=== PATIENT | female | born 1965 | race Caucasian/White ===

== ENCOUNTER 2021-10-27 17:36 | Emergency (ER) | payer BC, SELFPAY ==
[2021-10-27 19:30] VITALS: BP 127/82; PULSE 86; RESP 21; TEMP 36.6; O2SAT 97; BMI 29.0
--- NOTE | 2021-10-27 19:51 | HMH.EDUTC ---
[facility] Disposition Clinical Impression: Sinusitis Qualifiers: Sinusitis location: unspecified location Chronicity: unspecified Qualified Code(s): J32.9 - Chronic sinusitis, unspecified Disposition: Home, Self-Care Condition on Discharge: Good Instructions: Sinusitis, DI for Sinusitis, Cough Additional Instructions: *Monitor Temp, Over the counter Motrin or Tylenol as directed/as needed Tylenol every 4 hours and Motrin every 6 hours (as long as your family doctor has told you that you can take it) for fever or pain. and straight to ER if unable to lower temp less than 101.0 after medication given *Warm salt water gargles may help to soothe the throat *Throat Lozenges *Warm fluids like tea with honey may help to soothe the throat *Sleep elevated *Humidifier/Vaporizer Take medication as prescribed Return if needed Follow up IMMEDIATELY for new or worsening symptoms or no Noticeable improvement over the next 48-72 hours. 911 for difficulty breathing or swallowing Prescriptions: Benzonatate [Benzonatate 100mg cap] 100 mg PO Q8HP PRN #15 cap PRN Reason: Cough Transmission Status: Pending to [id number] methylPREDNISolone [Medrol 4mg tab] 4 mg PO DIRECTED #21 tab Transmission Status: Pending to [id number] Azithromycin [Z-Dannie 250mg Tab] 250 mg PO DIRECTED #6 tab Transmission Status: Pending to [id number] Referrals: Willy May [Primary Care Provider] - As needed Time of Disposition: 19:57 Medical Decision Making - Mason Inquiry Pt receiving controlled substance: No Mason was queried for this patient: No Vital Signs: 10/27/21 19:30 Temperature 97.9 F Temperature Source Oral Pulse Rate [Right Brachial] 86 Respiratory Rate 21 Blood Pressure [Right Arm] 127/82 Blood Pressure Mean [Right Arm] 97 Blood Pressure Source [Right Arm] Automatic Cuff Blood Pressure Position [Right Arm] Sitting 02 Sat by Pulse Oximetry 97 Oxygen Delivery Method Room Air [facility] HPI - General Stated complaint: cough Time Seen by Provider: 10/27/21 19:51 Mode of Arrival: Ambulatory Source of Information: Patient Limitations: No Limitations Description of Symptoms (Recalled from Triage Doc. by RN): PATIENT C/O COUGH X 1 WEEK HEENT Symptoms (Recalled from RN notes): No Resp Symptoms (Recalled from RN notes): Yes Skin Symptoms (Recalled from RN notes): No MS Symptoms (Recalled from RN notes): No Functional Status (Recalled from RN notes): WNL - History of Present Illness Provider Complaint: Patient states that she has been having sinus congestion, pressure and cough for about a week States that she has taken several over the counter medications but it hasnt helped States that this evening she was still not feeling well so she came in to get checked out - Related Data Previous Rx's Medication Instructions Recorded Azithromycin [Z-Dannie 250mg Tab] 250 mg PO DIRECTED #6 tab 10/27/21 Benzonatate [Benzonatate 100mg 100 mg PO Q8HP PRN #15 cap 10/27/21 cap] methylPREDNISolone [Medrol 4mg 4 mg PO DIRECTED #21 tab 10/27/21 tab] Allergies Allergy/AdvReac Type Severity Reaction Status Date / Time No Known Allergies Allergy Verified 10/27/21 19:43 - Worker's Comp Is this a Worker's Comp case?: No [facility] History - Hepatitis A Screen Attestation statement:: This patient has been screened for Hepatitis A risk factors. I have reviewed the patient's past medical history: Yes - Social History Alcohol Intake: never Occupational Status: other ROS Obtained: Yes All systems reviewed & no additional complaints, Yes Systems reviewed as appropriate & no additional complaints - Constitutional Constitutional: Reports system reviewed and no additional complaints, except as docu, Reports headache(s) - ENT Ears, Nose, Mouth, and Throat: Reports system reviewed and no additional complaints, except as docu, Reports sinus pain, Reports sinus pressure, Reports sore throat
[2021-10-27 19:55] VITALS: BP 127/82; PULSE 86; RESP 21; TEMP 36.6; O2SAT 97
== END 2021-10-27 20:03 | disposition home or self-care (01) ==
PROVIDERS: Emergency Provider Nurse Practitioner; PCP Internal Medicine
DX: J32.9 Chronic sinusitis, unspecified (principal)
CPT/HCPCS: 99212; G0463

== ENCOUNTER 2023-04-02 10:43 | Emergency (ER) | payer BC, SELFPAY ==
[2023-04-02 10:44] VITALS: BP 151/94; PULSE 65; RESP 18; TEMP 37.1; O2SAT 97; BMI 28.8
--- NOTE | 2023-04-02 10:56 | XR_ITS ---
PROCEDURE INFORMATION: Exam: XR Left Foot Exam date and time: 04/02/2023 10:58 AM Age: 57 years old Clinical indication: Pain; Ankle; Left; Additional info: Fell TECHNIQUE: Imaging protocol: Radiologic exam of the left foot. Views: 3 or more views. COMPARISON: No relevant prior studies available. FINDINGS: Bones/joints: No fractures, dislocations, or focal bone lesions. Plantar heel spur. Soft tissues: No masses, soft tissue gas, or radiopaque foreign bodies. IMPRESSION: No acute findings in the left foot.
--- NOTE | 2023-04-02 10:56 | XR_ITS ---
PROCEDURE INFORMATION: Exam: XR Left Ankle Exam date and time: 04/02/2023 11:02 AM Age: 57 years old Clinical indication: Pain; Ankle; Left; Additional info: Fell TECHNIQUE: Imaging protocol: Radiologic exam of the left ankle. Views: 3 or more views. COMPARISON: CR XR FOOT LT MIN 3V 04/02/2023 10:58 AM FINDINGS: Bones/joints: Curvilinear bone fragment along the tip of the lateral malleolus. No other fractures, dislocations, or focal bone lesions. Plantar heel spur. Joint spaces are well preserved. Soft tissues: Mild lateral soft tissue swelling. No radiopaque foreign bodies. IMPRESSION: 1. Acute avulsion fracture of the left lateral malleolus. 2. No other acute findings in the left ankle.
--- NOTE | 2023-04-02 11:12 | EXP.UTC ---
Discharge Plan Disposition Patient Disposition: Home, Self-Care Condition: Good Referrals Follow up/Referrals: Willy May [Primary Care Provider] - See instructions Kandis Tolbert DPM [Staff Physician] - See instructions Activity Restrictions/Add. Instructions Additional Instructions/Restrictions: Rest the extremity, apply ice for 15 minutes as tolerated three or four times per day, Wear the janee wrap for compression, Elevate the extremity as tolerated while you are resting. Take tylenol for pain. Follow up with Dr. Tolbert (podiatry). I put in a referral but you need to call her office and schedule an appointment. Follow up with your regular doctor. GO TO THE ER FOR ANY WORSENING SYMPTOMS Clinical Impressions Clinical Impression: Avulsion fracture of left ankle Stand Alone Forms Stand Alone Forms: Work/School Release Instructions Patient Instructions: How to Use Crutches, DI for Ankle Fracture, DI for Avulsion Fracture, How to Use a Walking Boot Discharge ED Provider: Richi Mcnamara [facility] General Stated complaint: AO 04/01/23 Home fall ankle pain Mode of Arrival: Ambulatory Source of Information: Patient Limitations: No Limitations Time Seen by Provider: 04/02/23 11:12 Description of Symptoms (Recalled from Triage Doc. by RN): Pt was walking in the garage and twisted left ankle. HEENT Symptoms (Recalled from RN notes): No Resp Symptoms (Recalled from RN notes): No Skin Symptoms (Recalled from RN notes): No MS Symptoms (Recalled from RN notes): Yes Functional Status (Recalled from RN notes): n/a History of Present Illness Provider Complaint: She states that she twisted her left foot and ankle yesterday. This caused her to fall. Since then, she has had left ankle swelling and pain when walking or bearing weight. Related Data Allergies Allergy/AdvReac Type Severity Reaction Status Date / Time ibuprofen Allergy Verified 04/02/23 11:04 Worker's Comp Is this a Worker's Comp case?: No [facility] Disclaimer: The information contained in this section may have been updated after the patient was seen, as this information can be updated by other users. Social History Smoking Status: Never smoker alcohol intake: never current occupational status: other Travel in the last 8 weeks: None ROS Obtained: Yes All systems reviewed & no additional complaints except as documented Constitutional Constitutional: Denies chills and Denies fever(s) Eyes Eyes: Denies eye discharge ENT Ears, Nose, Mouth, and Throat: Denies dizziness, Denies otalgia and Denies sore throat Cardiovascular Cardiovascular: Denies chest pain Respiratory Respiratory: Denies shortness of breath, Denies chest congestion, Denies cough, Denies stridor and Denies wheezing Gastrointestinal Gastrointestingal: Denies nausea or vomiting Musculoskeletal Musculoskeletal: Reports as per HPI Integumentary/Breasts Skin/Breast: Denies rash Neurologic Neurologic: Denies dizziness and Denies paresthesias Allergic/Immunologic Allergic/Immunologic: Denies wheezing Physical Exam General General appearance: alert and in no apparent distress Head Head exam: atraumatic, normocephalic and normal inspection Eye Eye exam: Present normal appearance, PERRL and EOMI ENT ENT exam: Present normal exam, normal oropharynx, mucous membranes moist, TM's normal bilaterally and normal external ear exam Neck Neck exam: Present normal inspection, full ROM and trachea midline; Absent meningismus or lymphadenopathy Chest Chest inspection: Present normal inspection and symmetric chest wall rise; Absent tenderness Respiratory Respiratory exam: Present normal lung sounds bilaterally; Absent respiratory distress Cardiovascular Cardiovascular exam: Present regular rate and normal rhythm; Absent JVD Abdominal Exam Abdominal exam: Present soft and normal bowel sounds; Absent distention, tenderness or guarding Extr
[2023-04-02 11:58] VITALS: BP 151/94; PULSE 65; RESP 18; TEMP 37.1; O2SAT 97
== END 2023-04-02 11:58 | disposition home or self-care (01) ==
PROVIDERS: Emergency Provider Nurse Practitioner Family; PCP Internal Medicine
DX: S82.62XA Displaced fracture of lateral malleolus of left fibula, initial encounter for closed fracture (principal); W19.XXXA Unspecified fall, initial encounter
CPT/HCPCS: 73610; 73630; 99212; 99214; G0463

== ENCOUNTER → 2023-04-25 10:51 | Outpatient (CLI) | payer BC, SELFPAY ==
--- OUTSIDE RECORDS SUMMARY | 2023-04-25 10:53 | XMS_ITS | Clinical Summary ---
Author Name Unknown Address [address] [place] [address] Phone Organization [facility] Address [address] [place] [address] Phone Care Team Providers Care Freight Service Inspector Name Role Phone aTpan AMOS, Mitch Dukes Unavailable [phone] Conditions or Problems Problem Name Problem Code Onset Date Status Entry Date Provider Comment Standard Description Annotate Acute renal failure 19119068 (SNOMED CT) 07/29 Active 08/02 Mitch Phelan MD Acute kidney injury Cellulitis of RLE L03.115 (ICD-10-CM ) 07/15 Inactive 07/15 Torrie W Cellulitis of right lower limb Abscess, leg, right 492776941 (SNOMED CT) 07/15 Inactive 07/15 Torrie W Abscess of lower limb Abscess of left leg L02.416 (ICD-10-CM ) 07/15 Active 07/24 Torrie W Cutaneous abscess of left lower limb Cellulitis of LLE 757061041 (SNOMED CT) 07/15 Active 07/24 Torrie W Cellulitis of lower
--- NOTE | 2023-04-25 10:55 | XR_ITS ---
FINAL REPORT CLINICAL HISTORY: Ankle pain COMPARISON: 04/02/2023 FINDINGS: LEFT ANKLE Three views demonstrate no acute fracture or dislocation. There is a linear density adjacent to the tip of the lateral malleolus that has an appearance most suggestive of an avulsion fracture, which was present on the prior film of April 02 and has not changed since that time. The visualized joint spaces are normally aligned. The soft tissues are unremarkable. IMPRESSION: No acute bony abnormality. Reviewed, Interpreted and Dictated by Rodrigo Tubbs MD Transcribed by Ekaterina Ford Authenticated and [facility]
== END ==
LOC: RAD 10:52
PROVIDERS: PCP Internal Medicine; Visit Provider Podiatrist
DX: T14.8XXA Other injury of unspecified body region, initial encounter (principal)
CPT/HCPCS: 73610

== ENCOUNTER → 2023-06-08 10:36 | Outpatient (CLI) | payer BC, SELFPAY ==
--- OUTSIDE RECORDS SUMMARY | 2023-06-08 10:39 | XMS_ITS | Clinical Summary ---
Author Name Unknown Address [address] [place] [address] Phone Organization [facility] Address [address] [place] [address] Phone Care Team Providers Care Environmental Assistant Name Role Phone Mitch Phelan MD Conditions or Problems Problem Name Problem Code Onset Date Status Entry Date Provider Comment Standard Description Annotate Acute renal failure 17993670 (SNOMED CT) 07/29 Active 08/02 Mitch Phelan MD Acute kidney injury Cellulitis of RLE L03.115 (ICD-10-CM ) 07/15 Inactive 07/15 Torrie W Cellulitis of right lower limb Abscess, leg, right 461233980 (SNOMED CT) 07/15 Inactive 07/15 Torrie W Abscess of lower limb Abscess of left leg L02.416 (ICD-10-CM ) 07/15 Active 07/24 Torrie W Cutaneous abscess of left lower limb Cellulitis of LLE 133572689 (SNOMED CT) 07/15 Active 07/24 Torrie W Cellulitis of lower limb Cellulitis of RLE L03.115 (ICD-10-CM ) 07/15 Removed 07/15 Torrie W Cellulitis of right lower limb Abscess, leg, right 380455648 (SNOMED CT) 07/15 Removed 07/15 Mitch Phelan MD Abscess of lower limb Acinetobacter infection B96.89 (ICD-10-CM ) 07/15 Active 07/15 Lexie L Other specified bacterial agents as the cause of diseases classified elsewhere H. influenzae infection B96.3 (ICD-10-CM ) 07/15 Active 07/15 Lexie L Hemophilus influenzae [H. influenzae] as the cause of diseases classified elsewhere Cellulitis of LLE L03.116 (ICD-10-CM ) 07/15 Inactive 07/15 Lexie L Cellulitis of left lower limb Medications Medication Instructions Start Date Stop Date Generic Name NDC Provider CEFTRIAXONE SODIUM (IV) SOLR Rocephin 2G IV [id number] 08/05 CEFTRIAXONE SODIUM SOLR [id number] Riddhi Hyde RN CEFDINIR 300 MG CAPS 1 by mouth every 12 hours 08/19 CEFDINIR [id number] Mitch Phelan MD CEFTRIAXONE SODIUM (IV) SOLR Rocephin 2G IV [id number] 08/05 CEFTRIAXONE SODIUM SOLR [id number] Shannan Saldivar RN CEPHALEXIN 500 MG CAPS TAKE 1 CAPSULE BY MOUTH TWICE A DAY FOR 7 DAYS CEPHALEXIN [id number] Jerome D DOXYCYCLINE HYCLATE 100 MG TABS TAKE 1 TABLET BY MOUTH TWICE A DAY FOR 14 DAYS DOXYCYCLINE HYCLATE [id number] Jerome D CLINDAMYCIN HCL 300 MG CAPS TAKE 1 CAPSULE BY MOUTH THREE TIMES A DAY FOR 7 DAYS CLINDAMYCIN HCL 14084030541 Jerome D MUPIROCIN 2 % OINT APPLY TO WOUND 3 TIMES DAILY NEEDED MUPIROCIN [id number] Jerome D PENTOXIFYLLINE ER 400 MG CR-TABS TAKE 1 TABLET BY MOUTH 3 TIMES A DAY NEEDED PENTOXIFYLLINE [id number] Jerome D CEFUROXIME AXETIL 500 MG TABS TAKE 1 TABLET BY MOUTH TWICE A DAY FOR 7 DAYS CEFUROXIME AXETIL 61569603636 Jerome D MINOCYCLINE HCL 100 MG CAPS TAKE 1 CAPSULE BY MOUTH TWICE A DAY BY MOUTH FOR 8 WEEKS MINOCYCLINE HCL 89776461603 Jerome D FLUCONAZOLE 150 MG TABS TAKE 1 TABLET BY MOUTH NEEDED FLUCONAZOLE [id number] Jerome D Medications Administered No information available. Allergies, Adverse Reactions, Alerts Allergy Name Reaction Description Start Date Severity Statu s Provider IBUPROFEN PM itching Mild Active Jerome D Results Date Name Value Unit Range Flag Description Lab Report: COMPREHENSIVE ME TABOLIC PANEL BILI TOTAL <0.2 mg/dL 0.0-1.2 Bilirubin. total [Mass/volume] in Serum or Plasma ALK PHOS 123 U/L 39-117 H Alkaline fina sphatase [Enzymatic activity/volume] in Blood SGOT (AST) 18 U/L 1-32 Aspartate aminotransferase [Enzymatic activity/volume] in Serum or Plasma SGPT (ALT) 16 U/L 1-33 Alanine aminotransferase [Enzymatic activity/volume] in Serum or Plasma ALBUMIN 4.20 g/dL 3.50-5.20 Albumin [Mass/volume] in Serum or Plasma PROTEIN, TOT 7.5 g/dL 6.0-8.5 Protein [Mass/volume] in Serum or Plasma Lab Report: CBC WITH AUTO DI FFERENTIAL [id number] 0.0 /100 WBC 0.0-0.2 GE use only - fo r [employer] import when terms are not otherwise specified IMMATUREGRAN 0.03 10*3/MM3 0.00-0.05 Immature granulocytes [#/volume] in Blood BASO# 0.06 10*3/mm3 0.00-0.20 Basophils [#/vol ume] in Blood EOS ABSLT 0.19 10*3/uL 0.00-0.40 Eosinophi ls [#/volume] in Blood MONOSCT AUTO 0.52 10*3/uL 0.10-0.90 Monocy madan [#/volume] in Blood by Automated count LYMPHCT AUTO 1.97 10*3/mm3 0.70-3.10 Lymph ocytes [#/volume] in Blood by Automated count ABS NEUTROPH 3.66 10*3/uL 1.70-7.00 Neutro phils [#/volume] in Blood IMM GRANU % 0.5 % 0.0-0.5 Immature granulocytes/100 leukocytes in Blood % EOS AUTO 3.0 % 0.3-6.2 Eosinophil s/100 leukocytes in Blood by Automated count MONOCYTE % 8.1 % 5.0-12.0 Monocytes /100 leukocytes in Blood by Automated count LYMPHOCY BF 30.6 % 19.6-45.3 lymphoc ytes as percent of body fluid leukocytes NEUTROP BF 56.9 % 42.7-76.0 Neutroph ils/100 leukocytes in Body fluid PLATELETS 258 10*3/mm3 140-450 Platelets [#/volume] in Blood by Automated count RDW_ 12.6 12.3-15.4 RDW, no uni ts MCHC 31.0 G/DL 31.5-35.7 L MCHC [Mass/ volume] by Automated count MCH 29.1 pg 26.6-33.0 MCH [Entiti c mass] by Automated count MCV 94.0 fL 79.0-97.0 MCV [Entiti c volume] by Automated count HCT 39.4 % 34.0-46.6 Hematocrit [Volume Fraction] of Blood by Automated count HGB 12.2 g/dL 12.0-15.9 Hemoglobin [Mass/volume] in Blood RBC 4.19 10*6/mm3 3.77-5.28 Erythrocyt es [#/volume] in Blood by Automated count WBC 6.43 10*3/mm3 3.40-10.8 0 Leukocytes [#/volume] in Blood by Automated count Lab Report: SEDIMENTATION RA TE ESR 13 mm/h 0-30 Erythrocyte sedimentation rate by Westergren method Lab Report: C-REACTIVE PROTE IN CRP 0.35 mg/dL 0.00-0.50 C reactive protein [Mass/volume] in Serum or Plasma Lab Report: BASIC METABOLIC PANEL ANIONGAP 6.0 mmol/L 5.0-15.0 anion gap, serum BUN/CREAT 12.4 7.0-25.0 Urea nitrogen/Creatinine [Mass Ratio] in Serum or Plasma GFRC 55 mL/min/1. 73m2 >60 L Glomerular Filtration Rate Calculation CALCIUM 9.8 mg/dL 8.6-10.5 Calcium [Moles/volume] in Serum or Plasma CO2 30.0 mmol/L 22.0-29.0 H Carbon diox sumaya, total [Moles/volume] in Venous blood CHLORIDE 105 mmol/L 98-107 Chloride [Moles/volume] in Serum or Plasma POTASSIUM 4.7 mmol/L 3.5-5.2 Potassium [Moles/volume] in Serum or Plasma SODIUM 141 mmol/L 136-145 Sodium [Moles/volume] in Serum or Plasma CREATININE 1.05 mg/dL 0.57-1.00 H Creatini ne [Mass/volume] in Serum or Plasma BUN 13 mg/dL 6-20 Urea nitrogen [Mass/volume] in Serum or Plasma GLUCOSE SER 84 mg/dL 65-99 Glucose [Mass/volume] in Serum or Plasma Office Visit: 7 MEDS REVIEW Done Documenta tion of current medications (procedure) ORALTOBACUSE Never Tobacco smoking status SMOK STATUS Never smoker Tobacco smoking status Plan of Care Type Date Detail Referral MRI Lower Extrem ity with/without contrast Pending order Discontinue IV a ntibiotics Pending order New Oral Antibio tic Pending order STAT Labs Pending order Continue IV anti biotics Pending order Ceftriaxone Pending order PIV/Butterfly Pending order Weekly Labs (Con tinue) Pending order CBC with Differe ntial Pending order BMP Pending order Sedimentation Ra te (ESR) Pending order C- reactive prot ein Pending order Continue IV anti biotics Pending order Ceftriaxone Pending order Weekly Labs (Con tinue) Pending order PIV/Butterfly Pending order Continue IV anti biotics Pending order Ceftriaxone Pending order PIV/Butterfly Pending order Weekly Labs (Con tinue) Pending order Labs Pending order BMP Pending order CBC with Differe ntial Pending order C- reactive prot ein Pending order Sedimentation Ra te (ESR) Pending order Wound Culture an d Sensitivity w/Gram Stain Pending order Weekly labs Procedures Code Procedure Name Date Entry Date CPT-sl STAT Labs CPT-ca Continue IV antibiotics 2020 CPT-J0696 Ceftriaxone CPT-22074 PIV/Butterfly CPT-42679 MRI Lower Extremity with/without contrast CPT-cwl Weekly Labs (Continue) 07/29 [id number] CBC with Differential 2020 CPT-58431 BMP CPT-33140 Sedimentation Rate (ESR) 06/13/16 CPT-93054 C- reactive protein CPT-ca Continue IV antibiotics 2020 CPT-J0696 Ceftriaxone CPT-cwl Weekly Labs (Continue) 07/22 CPT-03157 PIV/Butterfly CPT-ca Continue IV antibiotics 2020 CPT-J0696 Ceftriaxone CPT-35315 PIV/Butterfly CPT-cwl Weekly Labs (Continue) 07/15 CPT-labs Labs CPT-98545 BMP [id number] CBC with Differential 2020 CPT-94280 C- reactive protein CPT-25661 Sedimentation Rate (ESR) 202 06/13/02 CPT-51128 Wound Culture and Sensitivity w/Gram Stai n CPT: weekly Weekly labs Vital Signs Date Name Value Unit Description BMI (Body Mass Index) 28.29 kg/m2 Bod y Mass Index (Ratio) Body Temperature 98.0 [degF] temperat ure E&M BP Diastolic 78 mm[Hg] blood pressu re, diastolic BP Systolic 122 mm[Hg] blood pressur e, systolic Heart Rate 95 /min pulse rate Respiratory Rate 16 /min respirat ory rate E&M Weight Measured 191.6 [lb_av] weight E& M Height 69 [in_us] height E&M Immunizations Vaccine Administration Date Standard Description CVX Co de Dose Unspecified Formulation Unspecified Formulation 88 Unknown Advance Directives Directive Description Start Date NO LIVING WILL ON FILE
--- NOTE | 2023-06-08 10:40 | XR_ITS ---
FINAL REPORT CLINICAL HISTORY: LA sprain COMPARISON: None FINDINGS: LEFT ANKLE Three views demonstrate no acute fracture or dislocation. There is a small irregular density inferior to the lateral malleolus, that appears chronic. A moderate plantar calcaneal spur is present. The visualized joint spaces are normally aligned. The soft tissues are unremarkable. IMPRESSION: No acute bony abnormality. Small irregular density inferior to the lateral malleolus, appears chronic. Reviewed, Interpreted and Dictated by Rodrigo Tubbs MD Transcribed by Ekaterina Ford Authenticated and [facility]
== END ==
LOC: RAD 10:38
PROVIDERS: PCP Internal Medicine; Visit Provider Podiatrist
DX: M25.372 Other instability, left ankle (principal); S93.402A Sprain of unspecified ligament of left ankle, initial encounter; Y99.9 Unspecified external cause status
CPT/HCPCS: 73610